=== PATIENT | female | born 1940 | race African-American/Black ===

== ENCOUNTER 2017-04-15 22:19 | Inpatient (IN) | payer OTHER ==
[~2017-04-15] VITALS: Ht 195.6 cm; Wt 64.7 kg
[~2017-04-15 22:19] MED LIST: ASPI25CA2 PO; ATEN-60 PO; ATOR10TA PO; HYDR25TA35 PO; LATA0.0015 EACHEYE; LISI-646 PO; POT10T PO
[2017-04-15] MEDS ORDERED: SODIUM CHLORIDE 0.9% 1,000 ML IV ONE (22:41)
[2017-04-16 00:18] LABS: Basophils # (auto) 0.1 uL; Basophils % (auto) 0.5 % (0.0-2.0); Eosinophils # (auto) 0 uL; Hematocrit 40.1 % (36.0-46.0); Hemoglobin 13.4 g/dL (12.2-16.2); Lymphocytes # (auto) 0.9 uL; Lymphocytes % (auto) 8.8 % (10.0-50.0); Mean Corpuscular Hgb Conc. 33.4 g/dL (32.0-36.0); Mean Corpuscular Volume 89.9 fL (80.0-100.0); Monocytes # (auto) 0.6 uL; Monocytes % (auto) 5.9 % (0.0-12.0); Neutrophils # (auto) 9.1 uL; Neutrophils % (auto) 84.8 % (37.0-80.0); Platelet Count (auto) 286 10^3/uL (140-450); Red Blood Cells 4.46 10^6/uL (4.0-5.20); White Blood Cell 10.7 10^3/uL (4.4-10.8)
[2017-04-16 00:38] LABS: Calcium 9.8 mg/dL (8.5-10.1); Chloride 102 mmol/L (98-107); Sodium 140 mmol/L (136-145)
[2017-04-16 00:41] LABS: Alanine Aminotransferase 17 U/L (13-56); Albumin 4.4 g/dL (3.4-5.0); Amylase 142 U/L (25-115); Anion Gap 15 (5-15); Aspartate Aminotransferase 19 U/L (15-37); BUN/Creatinine Ratio 16.4; Blood Urea Nitrogen 20 mg/dL (7-18); Carbon Dioxide 23 mmol/L (21-32); GFR African American 55 mL/min; GFR Non-African American 45 mL/min; Glucose 118 mg/dL (74-106); Lipase 185 U/L (73-393)
[2017-04-16 00:46] LABS: Alkaline Phosphatase 90 U/L (45-117); Bilirubin, Total 0.9 mg/dL (0.2-1.0); Potassium 2.7 mmol/L (3.5-5.1); Total Protein 8.4 g/dL (6.4-8.2)
[2017-04-16] MEDS ORDERED: MORPHINE SULFATE 4 MG/ML SYR/VIAL IV ONE (03:15)
[2017-04-16] MEDS ORDERED: PROMETHAZINE HCL 25 MG/ML 1ML IV ONE (03:15)
[2017-04-16] MEDS ORDERED: LABETALOL HCL 5 MG/ML ML 20ML VIAL IV ONE (07:45)
[2017-04-16] MEDS ORDERED: NALBUPHINE HCL 10 MG/1ml INJECTION IV ONE (08:00)
[2017-04-16] MEDS ORDERED: ONDANSETRON HCL 4 MG/2 ML VIAL IV ONE (08:00)
[2017-04-16] MEDS: POTASSIUM CHL 20MEQ/100ML 100 ML IV SCH ×3 (08:31→12:36)
[2017-04-16] MEDS ORDERED: LOSARTAN POTASSIUM 25 MG TAB PO ONE (13:30)
[2017-04-16] MEDS ORDERED: NITROGLYCERIN 0.4 MG SL TAB SL PRN (13:45)
[2017-04-16] MEDS ORDERED: DOCUSATE SOD 100 MG CAP PO PRN (13:45)
[2017-04-16] MEDS ORDERED: HYDROcodone-ACET 5/325MG TAB PO PRN (13:45)
[2017-04-16] MEDS ORDERED: ACETAMINOPHEN 325 MG TAB PO PRN (13:45)
[2017-04-16] MEDS ORDERED: MORPHINE SULFATE 4 MG/ML SYR/VIAL IV PRN ×2 (13:45)
[2017-04-16] MEDS ORDERED: TEMAZEPAM 15 MG CAP PO PRN (13:45)
[2017-04-16] MEDS ORDERED: ONDANSETRON HCL 4 MG/2 ML VIAL IV PRN (13:45)
[2017-04-16] MEDS: SODIUM CHLORIDE 0.9% 1,000 ML IV SCH ×2 (14:04→21:56)
[2017-04-16] MEDS: FAMOTIDINE 20 MG TAB PO SCH ×2 (14:30→22:33)
[2017-04-16 14:51] LABS: Urine Bacteria NONE SEEN /hpf (None Seen); Urine Blood Negative /uL (Negative); Urine Specific Gravity 1.013 (1.001-1.035); Urine WBC <1 /hpf (0 - 5)
[2017-04-16 16:52] LABS: BUN/Creatinine Ratio 13.5; Calcium 8.7 mg/dL (8.5-10.1); Potassium 3.9 mmol/L (3.5-5.1)
[2017-04-16 17:21] VITALS: BP 145/76
[2017-04-16 22:00] VITALS: BP 143/85
[2017-04-16] MEDS: ATORVASTATIN 20 MG TAB PO SCH (22:33)
[2017-04-16] MEDS: LATANOPROST 0.005 % OPTH(EYE) SOL 2.5ML EACHEYE SCH (22:34)
[2017-04-17 05:00] VITALS: BP 131/91
[2017-04-17 06:03] LABS: Basophils # (auto) 0 uL; Basophils % (auto) 0.4 % (0.0-2.0); Eosinophils # (auto) 0.1 uL; Eosinophils % (auto) 1.4 % (0.0-7.0); Hematocrit 32.9 % (36.0-46.0); Hemoglobin 11.4 g/dL (12.2-16.2); Lymphocytes # (auto) 2.5 uL; Lymphocytes % (auto) 31.4 % (10.0-50.0); Mean Corpuscular Hgb Conc. 34.6 g/dL (32.0-36.0); Mean Corpuscular Volume 89.6 fL (80.0-100.0); Monocytes # (auto) 0.6 uL; Monocytes % (auto) 7.6 % (0.0-12.0); Neutrophils # (auto) 4.6 uL; Neutrophils % (auto) 59.2 % (37.0-80.0); Nucleated Red Blood Cells % 0.1 %; Platelet Count (auto) 270 10^3/uL (140-450); Red Blood Cells 3.67 10^6/uL (4.0-5.20); Red Cell Distribution Width 14.3 % (11.8-14.3); White Blood Cell 7.9 10^3/uL (4.4-10.8)
[2017-04-17] MEDS: SODIUM CHLORIDE 0.9% 1,000 ML IV SCH ×2 (06:16→13:15)
[2017-04-17 06:22] LABS: Albumin 3.3 g/dL (3.4-5.0); BUN/Creatinine Ratio 9.8; Bilirubin, Total 0.9 mg/dL (0.2-1.0); Calcium 8.5 mg/dL (8.5-10.1); Potassium 3.2 mmol/L (3.5-5.1)
[2017-04-17 09:00] VITALS: BP 157/101
[2017-04-17] MEDS: MULTIPLE VITAMIN TAB PO SCH (09:52)
[2017-04-17] MEDS: DILTIAZEM HCL 120MG ER CAP PO SCH (09:53)
[2017-04-17] MEDS: DILTIAZEM HCL 180MG ER CAP PO SCH (09:53)
[2017-04-17] MEDS: LORATADINE 10 MG TAB PO SCH (09:53)
[2017-04-17] MEDS: FAMOTIDINE 20 MG TAB PO SCH ×2 (09:53→22:39)
[2017-04-17] MEDS: METOPROLOL SUCCINATE XL 50 MG TAB PO SCH (09:54)
[2017-04-17] MEDS ORDERED: LOSARTAN POTASSIUM 25 MG TAB PO SCH (10:00)
[2017-04-17] MEDS ORDERED: PATIENTS OWN MEDICATION PO SCH (10:00)
[2017-04-17 12:00] VITALS: BP 175/80
[2017-04-17] MEDS: cloNIDine HCL 0.1 MG TAB PO PRN (12:15)
[2017-04-17] MEDS ORDERED: POTASSIUM CHL 20 Meq TABLET PO ONE (13:15)
[2017-04-17] MEDS: MAGNESIUM SULFATE 1GM/100ML 100 ML IV SCH ×2 (13:42→16:12)
[2017-04-17 15:00] VITALS: BP 141/81
[2017-04-17 22:00] VITALS: BP 151/76
[2017-04-17] MEDS: LOSARTAN POTASSIUM 25 MG TAB PO SCH (22:40)
[2017-04-17] MEDS: ATORVASTATIN 20 MG TAB PO SCH (22:40)
[2017-04-17] MEDS: LATANOPROST 0.005 % OPTH(EYE) SOL 2.5ML EACHEYE SCH (22:43)
[2017-04-18] MEDS: SODIUM CHLORIDE 0.9% 1,000 ML IV SCH ×2 (03:33→19:31)
[2017-04-18 05:00] VITALS: BP 170/81
[2017-04-18] MEDS: cloNIDine HCL 0.1 MG TAB PO PRN ×2 (05:53→23:10)
[2017-04-18 06:53] LABS: Calcium 8.9 mg/dL (8.5-10.1); Potassium 3.5 mmol/L (3.5-5.1)
[2017-04-18 06:54] LABS: BUN/Creatinine Ratio 6.8
[2017-04-18 07:00] LABS: INR 0.98 (0.9-1.15); Partial Thromboplastin Time 26.6 sec (22.64-33.71); Prothrombin Time 10.7 sec (9.37-12.3)
[2017-04-18 09:00] VITALS: BP 133/85
[2017-04-18] MEDS: FAMOTIDINE 20 MG TAB PO SCH ×2 (10:01→21:57)
[2017-04-18] MEDS: LOSARTAN POTASSIUM 25 MG TAB PO SCH ×2 (10:01→21:57)
[2017-04-18] MEDS: LORATADINE 10 MG TAB PO SCH (10:02)
[2017-04-18] MEDS: DILTIAZEM HCL 180MG ER CAP PO SCH (10:02)
[2017-04-18] MEDS: MULTIPLE VITAMIN TAB PO SCH (10:03)
[2017-04-18] MEDS: DILTIAZEM HCL 120MG ER CAP PO SCH (10:03)
[2017-04-18] MEDS: METOPROLOL SUCCINATE XL 50 MG TAB PO SCH (10:03)
[2017-04-18 12:20] VITALS: BP 144/88
[2017-04-18] MEDS ORDERED: GADOPENTETATE DIMEGLUMINE (10MMOL/20 ML) VIAL IV ONE (12:49)
[2017-04-18 16:40] VITALS: BP 139/79
[2017-04-18] MEDS: LATANOPROST 0.005 % OPTH(EYE) SOL 2.5ML EACHEYE SCH (21:56)
[2017-04-18] MEDS: ATORVASTATIN 20 MG TAB PO SCH (21:57)
[2017-04-18 22:00] VITALS: BP 178/78
[2017-04-19 05:00] VITALS: BP 147/82
[2017-04-19 07:20] LABS: INR 0.98 (0.9-1.15); Partial Thromboplastin Time 26.7 sec (22.64-33.71); Prothrombin Time 10.7 sec (9.37-12.3)
[2017-04-19 09:00] VITALS: BP 142/91
[2017-04-19] MEDS: METOPROLOL SUCCINATE XL 50 MG TAB PO SCH (10:00)
[2017-04-19] MEDS: LOSARTAN POTASSIUM 25 MG TAB PO SCH (10:08)
[2017-04-19] MEDS: MULTIPLE VITAMIN TAB PO SCH (10:08)
[2017-04-19] MEDS: LORATADINE 10 MG TAB PO SCH (10:08)
[2017-04-19] MEDS: FAMOTIDINE 20 MG TAB PO SCH (10:09)
[2017-04-19] MEDS: DILTIAZEM HCL 120MG ER CAP PO SCH (10:09)
[2017-04-19] MEDS: DILTIAZEM HCL 180MG ER CAP PO SCH (10:10)
[2017-04-19] MEDS: SODIUM CHLORIDE 0.9% 1,000 ML IV SCH (10:11)
[2017-04-19 13:00] VITALS: BP 169/91
[2017-04-19 14:45] VITALS: BP 142/91
== END 2017-04-19 15:40 | disposition home or self-care (01) | DRG 392 ==
LOC: EDBD 22:19 → ER 22:22 → TELE 22:23 → TELE-EAST 04-16 15:20
PROVIDERS: ADMIT Internal Medicine; ATTEND Hospitalist
DX: K29.70 Gastritis, unspecified, without bleeding (principal); N17.9 Acute kidney failure, unspecified; E86.0 Dehydration; I13.10 Hypertensive heart and chronic kidney disease without heart failure, with stage 1 through stage 4 chronic kidney disease, or unspecified chronic kidney disease; N39.0 Urinary tract infection, site not specified; N18.3 Chronic kidney disease, stage 3 (moderate); E03.9 Hypothyroidism, unspecified; E87.6 Hypokalemia; E78.5 Hyperlipidemia, unspecified; R19.09 Other intra-abdominal and pelvic swelling, mass and lump; I70.8 Atherosclerosis of other arteries; K29.80 Duodenitis without bleeding; K57.30 Diverticulosis of large intestine without perforation or abscess without bleeding; R59.1 Generalized enlarged lymph nodes; Z79.82 Long term (current) use of aspirin; Z79.899 Other long term (current) drug therapy; Z90.49 Acquired absence of other specified parts of digestive tract; Z90.710 Acquired absence of both cervix and uterus
CPT/HCPCS: 36415; 74176; 74181; 76705; 80048; 80053; 81001; 82105; 82150; 83690; 84484; 85025; 85610; 85730; 86301; 86304; 87086; 93005; 96361; 96365; 96366; 96375; J2405; J3480

== ENCOUNTER 2023-05-25 08:20 | Day surgery (SDC) | payer OTHER, MEDICAID ==
[~2023-05-25] VITALS: Ht 166.4 cm; Wt 53.5 kg
[2023-05-25] VITALS (11 sets, daily range): BP systolic 155–179; BP diastolic 87–121; PULSE 88–114; RESP 13–19; TEMP 97.7; O2SAT 92–100
[~2023-05-25 08:20] MED LIST changes: +APIX2.5T PO; -ASPI25CA2 PO; -ATEN-60 PO; -ATOR10TA PO; +DILT300C23 PO; +FERR325T24 PO; -HYDR25TA35 PO; +HYDR25TA4 PO; -LATA0.0015 EACHEYE; +LATA0.008 EACHEYE; +LETR2.5T PO; -LISI-646 PO; +LOSA-533 PO; +LOVA20TA4 PO; +METO25TA5 PO; -POT10T PO; +POTA-220 PO; +TIMO0.5S28 EACHEYE
[2023-05-25] MEDS ORDERED: MIDAZOLAM HCL 2MG/2ML 2ml VIAL (1mg/ml) ONE (10:38)
[2023-05-25] MEDS ORDERED: fentaNYL CITRATE 100 MCG/2 ML VL ONE (10:38)
[2023-05-25] MEDS ORDERED: LIDOCAINE 2%HCL (LOCAL ANESTH.) INJ 20ML MDV ONE (10:39)
[2023-05-25] MEDS ORDERED: IODIXANOL 320MG/ML 100ML BTL IV ONE (10:40)
[2023-05-25] MEDS: cloNIDine HCL 0.1 MG TAB PO ONE (13:25)
== END 2023-05-25 14:50 | disposition home or self-care (01) ==
LOC: CATH 08:20
PROVIDERS: ATTEND Internal Medicine
DX: I08.1 Rheumatic disorders of both mitral and tricuspid valves (principal); R07.9 Chest pain, unspecified; I27.20 Pulmonary hypertension, unspecified; I10 Essential (primary) hypertension; Z79.899 Other long term (current) drug therapy; Z90.12 Acquired absence of left breast and nipple; Z90.710 Acquired absence of both cervix and uterus; Z98.890 Other specified postprocedural states
CPT/HCPCS: 93460; C1757; C1760; C1894; J1644; J2250; J3010; Q9967; 99152; 99153